=== PATIENT | male | born 1985 | race Caucasian/White ===

== ENCOUNTER 2016-07-11 22:24 | Emergency (ER) | payer OTHER ==
[~2016-07-11] VITALS: Ht 180.3 cm; Wt 104.5 kg
[~2016-07-11 22:24] MED LIST: ALBUTEROL MDI; ALBUTEROL17 GM IH; CHOLESTEROL PO; FLEXERIL10 MG PO; FLOVENT 11120 INHALA; GEMFIBROZIL600 MG PO; HYDROCODON-ACE1 EAC7; KEFLEX500 MG PO; LEXAPRO10 MG PO; LYRICA150 MG; METOPROLOL SUC100 MG PO; MOTRIN IB200 MG PO; NAPROXEN500 MG PO; NEXIUM20 MG PO; OMEPRAZOLE20 MG PO; PROZAC10 MG PO; RANITIDINE; RISPERDAL0.5 MG PO; SEROQUEL200 MG PO; TRILEPTAL300 MG PO; VICODIN 5-5001 EACH PO; ZANTAC150 MG PO
[2016-07-11 23:42] LABS: ADD MIUA? YES; BILIRUBIN NEGATIVE; BLOOD SMALL; COLOR YELLOW ((YELLOW)); GLUCOSE (STRIP) NEGATIVE; KETONES NEGATIVE; LEUKOCYTES SMALL; NITRITE NEGATIVE; PROTEIN (STRIP) 30; SPECIFIC GRAVITY 1.019 (1.000-1.030); UROBILINOGEN 0.2 MG/DL (0.2-1.0)
[2016-07-11 23:55] LABS: BACTERIA NONE SEEN /HPF; EPITHELIAL CELLS RARE /HPF; MUCUS NONE SEEN /LPF; RED BLOOD CELLS 15-20 /HPF (0-5); UCUL ADDED? NO; WHITE BLOOD CELLS 40-50 /HPF (0-5)
[2016-07-12] MEDS ORDERED: KEFLEX500 MG PO (00:18)
[2016-07-12] MEDS ORDERED: PYRIDIUM100 MG PO (00:22)
[2016-07-12 00:29] VITALS: BP 134/89
== END 2016-07-12 00:30 | disposition home or self-care (01) ==
LOC: EME 22:24
DX: N39.0 Urinary tract infection, site not specified (principal); I10 Essential (primary) hypertension; J45.909 Unspecified asthma, uncomplicated; F17.200 Nicotine dependence, unspecified, uncomplicated
CPT/HCPCS: 81003; 99281; 99284

== ENCOUNTER 2017-01-15 00:43 | Emergency (ER) | payer OTHER ==
[~2017-01-15] VITALS: Ht 177.8 cm; Wt 107.0 kg
[~2017-01-15 00:43] MED LIST changes: +PYRIDIUM100 MG PO
[2017-01-15 03:01] VITALS: BP 168/101
== END 2017-01-15 03:02 | disposition home or self-care (01) ==
LOC: EME 00:43
DX: J02.9 Acute pharyngitis, unspecified (principal); Z91.040 Latex allergy status
CPT/HCPCS: 87651 90; 99281; 99283

== ENCOUNTER 2017-01-31 19:07 | Emergency (ER) | payer OTHER ==
[~2017-01-31] VITALS: Ht 177.8 cm; Wt 99.7 kg
[2017-01-31 19:18] VITALS: BP 150/88
== END 2017-01-31 21:39 | disposition home or self-care (01) ==
LOC: EME 19:07
DX: E04.1 Nontoxic single thyroid nodule (principal); Z87.891 Personal history of nicotine dependence
CPT/HCPCS: 99281; 99283